=== PATIENT | female | born 1955 | race Caucasian/White ===

== ENCOUNTER 2022-06-07 17:13 | Emergency (ER) | payer MEDICARE, BC ==
[~2022-06-07] VITALS: Ht 152.4 cm; Wt 52.2 kg
[2022-06-07] MEDS ORDERED: GABAPENTIN100 MG PO (17:24)
[2022-06-07] MEDS ORDERED: ZOLOFT25 MG PO (17:25)
--- NOTE | 2022-06-08 19:02 | EKG ---
[facility] [address] [facility] [place] [address] Signed Normal sinus rhythm Normal ECG No previous ECGs available Confirmed by MERCED WINSTON MD ([id number] on 06/08/2022 7:02:07 PM Electronically Signed By: MERCED WINSTON MD 06/08/221901 PATIENT NAME: CHITO ABDUL Electrocardiogram DATE OF : 55 PHYSICIAN: MERCED WINSTON MD REPORT #: [id number] REPORT IS CONFIDENTIAL AND NOT TO BE RELEASED WITHOUT AUTHORIZATION
== END 2022-06-07 20:03 | disposition home or self-care (01) ==
LOC: ED 17:13
DX: R07.2 Precordial pain (principal); K21.9 Gastro-esophageal reflux disease without esophagitis; Z79.899 Other long term (current) drug therapy
CPT/HCPCS: 36415; 71045; 80053; 83735; 84484; 85025; 93005; 93010; 99285-25; A9270